=== PATIENT | male | born 1950 ===

== ENCOUNTER 2020-05-27 14:47 | Outpatient (CLI) | payer MEDICARE, SELFPAY | END 2020-05-27 14:48 | disposition home or self-care (01) | LOC: ANHCOVIDVC 14:47 | PROVIDERS: PCP Family Medicine Adolescent Medicine | DX: Z23 Encounter for immunization (principal) | CPT/HCPCS: 0001A; 91300 ==

== ENCOUNTER 2020-06-17 14:51 | Outpatient (CLI) | payer MEDICARE, SELFPAY | END 2020-06-17 14:52 | disposition home or self-care (01) | LOC: ANHCOVIDVC 14:51 | PROVIDERS: PCP Family Medicine Adolescent Medicine | DX: Z23 Encounter for immunization (principal) | CPT/HCPCS: 0002A; 91300 ==

== ENCOUNTER 2024-09-19 14:14 | Emergency (ER) | payer MEDICARE, SELFPAY ==
[2024-09-19 14:23] VITALS: BP 192/96; PULSE 81; RESP 16; TEMP 36.1; O2SAT 100
--- NOTE | 2024-09-19 14:33 | ED_ITS ---
HPI - Ear Problem General Chief complaint: Ear Stated complaint: RT Ear Pain Time Seen by Provider: 09/19/24 14:30 Source: patient Mode of arrival: ambulatory Limitations: no limitations History of Present Illness HPI Narrative: Travis is a 74-year-old male patient presenting to the clinic today with complaints of right ear pain. He reports that his right ear pain has been going on for approximately 2 months. Had a dental procedure done and developed some ear pain. Was given penicillin for possible infection. He reports that the antibiotic did not help his symptoms. Has been taking ibuprofen to help jeff viate his symptoms. Denies any drainage from the ear or recent swimming. Reports that feels as though his ear canal is swollen and feels as though there may be fluid behind his ear. States the pain is uncomfortable when he is opening up his mouth and lying on his right side. Related Data Home Medications ?Medication ?Instructions ?Recorded ?Confirmed ?Last Taken ?Type No Home Medications 09/19/24 09/19/24 Unknown History Allergies Allergy/AdvReac Type Severity Reaction Status Date / Time No Known Allergies Allergy Verified 09/19/24 14:31 Review of Systems Review of Systems: Pertinent positives per HPI. Patient denies any fever, chills, rash, headache, visual changes, dizziness, cough, shortness of breath, chest pain, palpitations, nausea, vomiting, diarrhea, constipation, abdominal pain, or any urinary issues. PMFSH Comments At the time of my signature, I reviewed and agree with the nursing past medical, surgical, social, and family history. There is no relevant family history pertinent to the patient complaint. Exam Narrative: General: Well-developed, well nourished, in no apparent distress Head: Normocephalic, atraumatic Eyes: Pupils equally round and reactive to light bilaterally, EOM intact, sclera and conjunctive clear, no discharge, lids normal Ears: TMs intact and clear, good cone light reflex, ear canals clear, mild tenderness to palpation over the right tragus, no drainage, grossly hearing normal. Nose: Nares patent, clear nasal discharge, no inflammation, no sinus tenderness. Mouth: Oral pharynx without lesions or masses, good dentition, MMM. Postnasal drip, mild crepitus palpable with opening closing of the jaw Neck: Supple, trachea midline, no enlargement of anterior or posterior cervical nodes, no thyroid masses or goiter palpable. Cardio: Regular rate and rhythm, s1 and s2 normal, no murmur appreciated. Resp: Clear to auscultation bilaterally, no rhonchi, rales, wheezing or rubs Course Course Emergency Course: Portions of this record may have been created with voice recognition software. Level of Care: Express Care Visit Vital Signs Vital signs: Vital Signs Temperature 36.1 C L 09/19/24 14:23 Pulse Rate 81 09/19/24 14:23 Respiratory Rate 16 09/19/24 14:23 Blood Pressure 192/96 H 09/19/24 14:23 Pulse Oximetry 100 09/19/24 14:23 Temperature 36.1 C L 09/19/24 14:23 Pulse Rate 81 09/19/24 14:23 Respiratory Rate 16 09/19/24 14:23 Blood Pressure 192/96 H 09/19/24 14:23 Pulse Oximetry 100 09/19/24 14:23 Vital signs reviewed Medical Decision Making MDM Narrative Medical decision making narrative: At the time of visit patient is resting comfortably on the exam table. Patient appears to be nontoxic. Plan: I suspect patient has right otalgia likely due to TMJ. Supportive measures were discussed with the patient and they voiced understanding discharge instructions and agrees to treatment plan. Return precautions reviewed Differential Diagnosis Differential Diagnosis: Otitis media, otitis externa, eustachian tube dysfunction, cerumen impaction, upper respiratory infection, TMJ Vital Signs Vital Signs: Vital Signs Temperature 36.1 C L 09/19/24 14:23 Pulse Rate 81 09/19/24 14:23 Respiratory Rate 16 09/19/24 14:23 Blood Pressure 192/96 H 09/19/24 14:23 Pulse Oximetry 100 09/19/24 14:23 Temperature 36.1 C L 09/19/24 14:23 Pulse Rate 81 09/19/24 14:23 Respiratory Rate 16 09/19/24 14:23 Blood Pressure 192/96 H 09/19/24 14:23 Pulse Oximetry 100 09/19/24 14:23 Discharge Plan Discharge Clinical Impression: Acute otalgia Qualifiers: Laterality: right Qualified Code(s): H92.01 - Otalgia, right ear Patient Disposition: Home Condition: Stable Instructions: Antibiotic Form, Earache (ED) Additional Instructions: No sign of bacterial infection in the clinic today May try using Flonase and [id number] antihistamine such as Zyrtec or Claritin Tylenol/motrin as needed for pain May use heating pad to alleviate pain Follow-up with Ears Nose and Throat doctor - Dr Chapman as discussed Follow up with your PCP in 3-5 days if symptoms persist. Patient Language: Persian Prescriptions: No Action No Home Medications Follow-up/Referrals: Alejo Chapman MD [Physician] - 2 Days (Right otalgia) Jayson Rivero MD [Primary Care Provider] - Time of Disposition: 14:34 Quality NIHSS Nursing Documentation ED NIHSS nursing documentation: reviewed/agree
== END 2024-09-19 14:37 | disposition home or self-care (01) ==
PROVIDERS: Emergency Provider Nurse Practitioner Family; PCP Family Medicine Adolescent Medicine
DX: H92.01 Otalgia, right ear (principal)
CPT/HCPCS: 99202; G0463

== ENCOUNTER 2025-02-13 07:59 | Emergency (ER) | payer MEDICARE, SELFPAY ==
[2025-02-13 08:01] VITALS: BP 180/104; PULSE 102; RESP 20; TEMP 36.4; O2SAT 98
--- NOTE | 2025-02-13 08:25 | PC.NURSE ---
Stringer catheter placed, upon filling balloon, stringer was not in place. attempted to empty balloon- and there was no fluid present. stringer removed- catheter balloon was not intact. 500ml urine removed with catheter, patient currently attempting to urinate at this time utilizing a urinal.
--- NOTE | 2025-02-13 10:58 | ED.GENADULT ---
HPI - General Adult General Chief complaint: Urogenital-Male Stated complaint: unable to urinate Time Seen by Provider: 02/13/25 08:03 History of Present Illness HPI narrative: This is a 74-year-old male presenting with acute urinary retention. Patient is having difficulty urinating last night. He then developed abdominal pressure. He has noted weak stream in the past but never had urinary retention before. He does not have any dysuria urgency or frequency. No history of BPH. He does not have urologist. No fevers or flank pain. Related Data Allergies Allergy/AdvReac Type Severity Reaction Status Date / Time No Known Allergies Allergy Verified 11/06/24 10:27 [facility] Social History Social History Smoking status: Never smoker Alcohol intake: current Drinks per week: 2 Substance use: never Exam Narrative: The patient was evaluated after a Coleman was placed by nursing staff. APPEARANCE: No apparent distress. Head: atraumatic. EYES: EOMI, NOSE: Atraumatic NECK: Trachea midline RESPIRATORY: No increased rate of breathing CARDIOVASCULAR: RRR, ABDOMINAL: Non-distended soft nontender no guarding rebound MUSCULOSKELETAl: No obvious deformities NEURO: Alert. Moving 4/4 extremities SKIN:: Warm, dry. Normal color PSYCHIATRIC: Normal affect Course Vital Signs Vital signs: Vital Signs Temperature 97.6 F 02/13/25 08:01 Pulse Rate 102 H 02/13/25 08:01 Respiratory Rate 20 02/13/25 08:01 Blood Pressure 180/104 H 02/13/25 08:01 Pulse Oximetry 98 02/13/25 08:01 Oxygen Delivery Room Air 02/13/25 08:01 Temperature 97.6 F 02/13/25 08:01 Pulse Rate 102 H 02/13/25 08:01 Respiratory Rate 20 02/13/25 08:01 Blood Pressure 180/104 H 02/13/25 08:01 Pulse Oximetry 98 02/13/25 08:01 Oxygen Delivery Room Air 02/13/25 08:01 Medical Decision Making [facility] Narrative Medical decision making narrative: -Course: 74-year-old male presenting with acute urinary retention. Bladder scan showed approximately 670 cc in the bladder. A Coleman was placed with immediate relief. Patient started on Flomax. Urine not indicative infection. Patient discharged follow-up with urology. -DDX includes but is not limited to: Acute urinary retention, BPH, UTI Vital Signs Vital Signs: Vital Signs Temperature 97.6 F 02/13/25 08:01 Pulse Rate 102 H 02/13/25 08:01 Respiratory Rate 20 02/13/25 08:01 Blood Pressure 180/104 H 02/13/25 08:01 Pulse Oximetry 98 02/13/25 08:01 Oxygen Delivery Room Air 02/13/25 08:01 Temperature 97.6 F 02/13/25 08:01 Pulse Rate 102 H 02/13/25 08:01 Respiratory Rate 20 02/13/25 08:01 Blood Pressure 180/104 H 02/13/25 08:01 Pulse Oximetry 98 02/13/25 08:01 Oxygen Delivery Room Air 02/13/25 08:01 Lab Data Labs: Lab Results 02/13/25 Range/Units 11:06 Urine Color Yellow (Yellow) Urine Appearance Clear (Clear) Urine pH 5.5 (5.0-9.0) Ur Specific [place] 1.011 (1.001-1.035) Urine Protein Negative (Negative) mg/dL Urine Glucose (UA) Negative (Negative) mg/dL Urine Ketones Trace H (Negative) mg/dL Ur Blood (Man) Negative (Negative) Urine Nitrate Negative (Negative) Urine Bilirubin Negative (Negative) Urine Urobilinogen 0.2 (<2.0) mg/dL Leukocyte Esterase Rfl Negative (Negative) WHITNEY/UL Discharge Plan Discharge Clinical Impression: Acute urinary retention Patient Disposition: Home Condition: Stable Instructions: Antibiotic Form, Coleman Catheter Placement and Care (ED), Acute Urinary Retention in Women (ED) Additional Instructions: You were seen in the emergency department for acute urinary retention. Please take Flomax on a daily basis. Please call urologist clinic listed below to arrange close follow-up. If you develop fevers, abdominal pain or any new or worsening symptoms return ED for re-evaluation. Patient Language: Jamaican Prescriptions: New tamsulosin [Flomax] 0.4 mg capsule 0.4 mg PO DAILY Qty: 30 0RF No Action azelastine-fluticasone 137-50 mcg/spray spray,non-aerosol 1 spray intranasal BID Qty: 23 2RF Rx Instructions: administer into each nostril lisinopril 5 mg tablet 5 mg PO DAILY Qty: 90 3RF Follow-up/Referrals: Lonnie Howard MD [Physician, Urology] - 1 Week Clinical Impression: Acute urinary retention Thea Page APRN [Primary Care Provider, Family Practice]
[2025-02-13 11:11] LABS: Add Urine Microscopic? NO; Appearance Urine Clear (Clear); Glucose Urine UA Negative (Negative); Leukocyte Esterase Ur Negative LEU/UL (Negative); Nitrate Urine Negative (Negative); Specific Grav Ur 1.011 (1.001-1.035)
[2025-02-13] MEDS: TAMSULOSIN HCL 0.4 MG CAPSULE PO (11:15)
== END 2025-02-13 11:47 | disposition home or self-care (01) ==
PROVIDERS: Emergency Provider Emergency Medicine; PCP Nurse Practitioner Family
DX: R33.9 Retention of urine, unspecified (principal)
CPT/HCPCS: 51702; 81003; 99283; A9270